=== PATIENT | female | born 1990 | race Caucasian/White ===

== ENCOUNTER 2022-11-23 21:48 | Emergency (ER) | payer OTHER, MEDICAID, SELFPAY ==
[2022-11-23 22:03] VITALS: BP 109/71; PULSE 97; RESP 18; TEMP 36.6; O2SAT 100; BMI 18.5
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
[2022-11-23] MEDS: ketorolac 10 mg Tablet PO (23:33)
--- NOTE | 2022-11-23 23:34 | PC.NURSE ---
Patient complaining of coldness in her feet. Pedal pulses 2+, cap refill less than 3 seconds.
[2022-11-23 23:47] VITALS: BP 100/50; PULSE 73; RESP 18; O2SAT 99
--- NOTE | 2022-11-23 23:52 | PC.NURSE ---
Pt had refused tetanus shot, chest x-ray, and IM toradol, had requested PO pain med instead. Provider was made aware, and PO pain meds given instead.
== END 2022-11-23 23:53 | disposition home or self-care (01) ==
PROVIDERS: Emergency Provider Nurse Practitioner; PCP Registered Nurse
DX: T24.202A Burn of second degree of unspecified site of left lower limb, except ankle and foot, initial encounter (principal); T24.201A Burn of second degree of unspecified site of right lower limb, except ankle and foot, initial encounter; W36.8XXA Explosion and rupture of other gas cylinder, initial encounter
CPT/HCPCS: 99284

== ENCOUNTER → 2023-06-16 13:21 | Outpatient (BNVA) | payer MEDICAID, SELFPAY | PROVIDERS: PCP Registered Nurse; Visit Provider Emergency Medicine | DX: J02.9 Acute pharyngitis, unspecified (principal) | CPT/HCPCS: 87400; 87880 ==

== ENCOUNTER 2023-08-07 12:30 | Outpatient (CLI) | payer MEDICAID, SELFPAY ==
[2023-08-07] VITALS (19 sets, daily range): BP systolic 104–120; BP diastolic 52–64; PULSE 78–113; O2SAT 98–100; BMI 22.8
--- NOTE | 2023-08-07 13:22 | US_ITS ---
[facility] HISTORY: Cervical length. Transvaginal imaging is performed of the cervix. The cervix is closed measuring 3.6 cm. No cervical i nsufficiency identified. No fluid along the cervical length. IMPRESSION: Normal cervical length. No insufficiency.
[2023-08-07] MEDS: lactated ringers 1,000 ML 999 ML IV (13:41)
== END 2023-08-07 15:21 | disposition home or self-care (01) ==
LOC: OPOB 12:35 → OBGYN 12:35
PROVIDERS: PCP Registered Nurse; Visit Provider Family Medicine
DX: O26.899 Other specified pregnancy related conditions, unspecified trimester (principal); Z3A.00 Weeks of gestation of pregnancy not specified; R10.9 Unspecified abdominal pain
CPT/HCPCS: 59025; 76817; 96365; 99211; J7120